=== PATIENT | female | born 1990 | race American Indian/Alaskan Native ===

== ENCOUNTER 2021-08-13 10:16 | Emergency (ER) | payer OTHER ==
[2021-08-13 10:39] VITALS: BP 133/89
[2021-08-13] MEDS ORDERED: dexAMETHasone 20 MG/5 ML VIAL IM ONE (10:40)
--- NOTE | 2021-08-13 10:45 | Emergency Department Report ---
ED ENT HPI - General Chief complaint: Sore Throat Stated complaint: SORE THROAT Time Seen by Provider: 08/13/21 10:25 Source: patient Mode of arrival: Ambulatory Limitations: No Limitations - History of Present Illness Initial comments: Patient is a 30-year-old female presents emergency room complaints of a sore throat that began last night. Patient states that she has discomfort with swallowing. She states that she is able to tolerate her secretions but it is painful. Patient states that she has had strep throat in the past and believes that she may have it again. She states that she also has a low-grade fever of 99.9 and chills. She states that she has been taking NyQuil. She denies any vomiting, diarrhea, cough, shortness of breath, chest pain. No past medical history. Allergy to codeine. Last menstrual cycle 07/25/2021. - Related Data Previous Rx's Medication Instructions Recorded Last Taken Type Amoxicillin [Trimox] 500 mg PO BID 10 Days #40 capsule 08/13/21 Unknown Rx Nystas/Diphen/Xyl Visc/Mylanta 30 ml MM Q4H PRN #300 ml 08/13/21 Unknown Rx [Magic Mouthwash] Allergies Allergy/AdvReac Type Severity Reaction Status Date / Time codeine Allergy Hives Verified 08/13/21 10:40 ED Dental HPI - General Chief complaint: Sore Throat Stated complaint: SORE THROAT Time Seen by Provider: 08/13/21 10:25 Source: patient Mode of arrival: Ambulatory Limitations: No Limitations - Related Data Previous Rx's Medication Instructions Recorded Last Taken Type Amoxicillin [Trimox] 500 mg PO BID 10 Days #40 capsule 08/13/21 Unknown Rx Nystas/Diphen/Xyl Visc/Mylanta 30 ml MM Q4H PRN #300 ml 08/13/21 Unknown Rx [Magic Mouthwash] Allergies Allergy/AdvReac Type Severity Reaction Status Date / Time codeine Allergy Hives Verified 08/13/21 10:40 ED Review of Systems ROS: Stated complaint: SORE THROAT Other details as noted in HPI Comment: All other systems reviewed and negative ED Past Medical Hx - Past Medical History Previous Medical History?: No - Surgical History Past Surgical History?: No - Social History Smoking Status: Never Smoker Substance Use Type: None - Medications Home Medications: Home Medications Medication Instructions Recorded Confirmed Last Taken Type Amoxicillin [Trimox] 500 mg PO BID 10 Days #40 capsule 08/13/21 Unknown Rx Nystas/Diphen/Xyl Visc/Mylanta 30 ml MM Q4H PRN #300 ml 08/13/21 Unknown Rx [Magic Mouthwash] ED Physical Exam - General Limitations: No Limitations General appearance: alert, in no apparent distress - Head Head exam: Present: atraumatic, normocephalic - Eye Eye exam: Present: normal appearance - ENT ENT exam: Present: mucous membranes moist, other (posterior oropharynx erythema, bilateral tonsillar hypertrophy with exudates, uvula is midline, no uvluar edema or deviation, no trismus, no tongue elevation, no muffled voice, no submandibular edema) - Neck Neck exam: Present: full ROM. Absent: meningismus - Respiratory Respiratory exam: Present: normal lung sounds bilaterally. Absent: respiratory distress, wheezes, rales, rhonchi, stridor, chest wall tenderness, accessory muscle use, decreased breath sounds, prolonged expiratory - Cardiovascular Cardiovascular Exam: Present: regular rate, normal rhythm, normal heart sounds. Absent: systolic murmur, diastolic murmur, rubs, gallop - Neurological Exam Neurological exam: Present: alert, oriented X3 - Psychiatric Psychiatric exam: Present: normal affect, normal mood - Skin Skin exam: Present: warm, dry, intact ED Course Vital Signs 08/13/21 10:38 Temperature 99.2 F Pulse Rate 105 H Respiratory 16 Rate Blood Pressure 133/89 [Left] O2 Sat by Pulse 98 Oximetry ED Medical Decision Making - Medical Decision Making Patient is a 30-year-old female presents emergency room complaints of a sore throat that began last night. Patient states that she has discomfort with swallowing. She states that she is able to tolerate her secretions but it is painful. Patient states that she has had strep throat in the past and believes that she may have it again. She states that she also has a low-grade fever of 99.9 and chills. She states that she has been taking NyQuil. She denies any vo miting, diarrhea, cough, shortness of breath, chest pain. No past medical history. Allergy to codeine. Last menstrual cycle 07/25/2021. vss. on exam: posterior oropharynx erythema, bilateral tonsillar hypertrophy with exudates, uvula is midline, no uvluar edema or deviation, no trismus, no tongue elevation, no muffled voice, no submandibular edema. Examination appears consistent with tonsillitis. There is no clinical signs of peritonsillar abscess at this time. Patient is maintaining her airway and her secretions. Patient given dexamethasone IM while in the emergency department. Patient given prescription for medication. Advised patient Please take medication as prescribed. May gargle with warm salt water. Throw away your toothbrush. Do not drink after others or allow others to drink after you. Follow-up with your primary care doctor for reexamination. Return to emergency room for any new or worsening symptoms. Critical care attestation.: If time is entered above; I have spent that time in minutes in the direct care of this critically ill patient, excluding procedure time. ED Disposition Clinical Impression: Tonsillitis Disposition: 01 HOME / SELF CARE / HOMELESS Is pt being admited?: No Does the pt Need Aspirin: No Condition: Stable Instructions: Tonsillitis, [id number] Additional Instructions: Please take medication as prescribed. May gargle with warm salt water. Throw away your toothbrush. Do not drink after others or allow others to drink after you. Follow-up with your primary care doctor for reexamination. Return to emergency room for any new or worsening symptoms. Prescriptions: Amoxicillin [Trimox] 500 mg PO BID 10 Days #40 capsule Nystas/Diphen/Xyl Visc/Mylanta [Magic Mouthwash] 30 ml MM Q4H PRN #300 ml PRN Reason: sore throat Referrals: CUAUHTEMOC GUTIÉRREZ MD [Staff Physician] - 3-5 Days [facility] [Provider Group] - 3-5 Days Forms: Work/School Release Form(ED) Time of Disposition: 10:43 Print Language: SPANISH
== END 2021-08-13 11:00 | disposition home or self-care (01) ==
LOC: ED 10:16
DX: J03.90 Acute tonsillitis, unspecified (principal); Z88.5 Allergy status to narcotic agent; Z79.899 Other long term (current) drug therapy
CPT/HCPCS: 96372; 99281; J1100